=== PATIENT | female | born 1975 | race Caucasian/White ===

== ENCOUNTER 2017-02-08 17:33 | Inpatient (IN) | payer MEDICAID ==
[~2017-02-08] VITALS: Ht 165.1 cm; Wt 59.5 kg
[~2017-02-08 17:33] MED LIST: AMOXICILLIN500 MG PO; KEFLEX750 MG PO
[2017-02-08 19:14] LABS: PLATELET COUNT 311 x10^3mcL (130-400)
[2017-02-08 19:20] LABS: CALCIUM 7.7 mg/dL (8.5-10.1); CARBON DIOXIDE 29.2 mmol/L (21-32); CHLORIDE SERUM 105 mmol/L (98-107); CREATININE SERUM 0.6 mg/dL (0.6-1.0); GFR1 > 60 mL/min; GLUCOSE SERUM 92 mg/dL (74-106); POTASSIUM SERUM 3.5 mmol/L (3.5-5.1); SODIUM SERUM 138 mmol/L (136-145)
[2017-02-08 19:21] LABS: RED CELL DISTRIBUTION WIDTH 22.3 % (11.5-14.5)
[2017-02-08 19:25] LABS: ALKALINE PHOSPHATASE 85 U/L (46-116); ALT/SGPT 32 U/L (14-59); AST/SGOT 30 U/L (15-37); BILIRUBIN TOTAL 0.4 mg/dL (0.20-1.00); LIPASE 104 IU/L (73-393); TOTAL PROTEIN, SERUM 6.4 g/dL (6.4-8.2)
[2017-02-08 19:39] LABS: BAND NEUTROPHIL 0 % (0-10); BASOPHIL 0 % (0-2); MONOCYTE 8 % (0-7); SEGMENTED NEUTROPHILS 62 % (37-75); rbc morphology (normal/abnorm) ABNORMAL (NORMAL)
[2017-02-08] MEDS ORDERED: GLUCOPHAGE XR500 MG (19:42)
[2017-02-08 21:11] VITALS: BP 107/53
[2017-02-08] MEDS ORDERED: METFORMIN HCL500 MG PO (21:23)
[2017-02-08 22:10] LABS: TOTAL IRON BINDING CAPACITY 312 ug/dL (250-450)
[2017-02-08 22:13] LABS: MAGNESIUM 1.6 mg/dL (1.8-2.4); PHOSPHOROUS 3.2 mg/dL (2.5-4.9)
[2017-02-08 22:17] LABS: IRON 13 ug/dL (50-170)
[2017-02-08 22:37] LABS: RED BLOOD CELLS 3.33 M/mm3 (4.10-5.10)
[2017-02-08 22:41] LABS: FREE T4 0.94 ng/dL (0.76-1.46); FREE THYROXINE INDEX 2.8 ug/dL (1.4-4.5); T4(THYROXINE) 7.1 ug/dL (4.7-13.3)
[2017-02-08 22:50] LABS: T3 TOTAL 0.73 ng/mL
[2017-02-09 01:33] LABS: AMPHETAMINE QUAL UR NONE DETECTED (NEG <=1000)
[2017-02-09 03:56] LABS: PLATELET COUNT 299 x10^3mcL (130-400)
[2017-02-09 04:01] LABS: RED CELL DISTRIBUTION WIDTH 30.6 % (11.5-14.5)
[2017-02-09 04:03] LABS: rbc morphology (normal/abnorm) ABNORMAL (NORMAL)
[2017-02-09 06:50] LABS: microscopic required? NO
[2017-02-09 07:10] LABS: PLATELET COUNT 295 x10^3mcL (130-400)
[2017-02-09 07:25] LABS: CALCIUM 7.7 mg/dL (8.5-10.1); CARBON DIOXIDE 28.3 mmol/L (21-32); CHLORIDE SERUM 107 mmol/L (98-107); CREATININE SERUM 0.6 mg/dL (0.6-1.0); GFR1 > 60 mL/min; GLUCOSE SERUM 90 mg/dL (74-106); HDL CHOLESTEROL 40 mg/dL (40-60); MAGNESIUM 2.5 mg/dL (1.8-2.4); PHOSPHOROUS 4.5 mg/dL (2.5-4.9); POTASSIUM SERUM 3.9 mmol/L (3.5-5.1); SODIUM SERUM 140 mmol/L (136-145); TRIGLYCERIDES 45 mg/dL (<150)
[2017-02-09 07:33] LABS: CHOLESTEROL 80 mg/dL (<200)
[2017-02-09 08:22] LABS: urine erythrocyte NEGATIVE (NEGATIVE)
[2017-02-09 08:31] LABS: RED CELL DISTRIBUTION WIDTH 30.7 % (11.5-14.5)
[2017-02-09 09:54] VITALS: BP 94/55
[2017-02-09 11:54] LABS: BAND NEUTROPHIL 2 % (0-10); BASOPHIL 0 % (0-2); MONOCYTE 13 % (0-7); SEGMENTED NEUTROPHILS 58 % (37-75)
[2017-02-09 11:55] LABS: rbc morphology (normal/abnorm) ABNORMAL (NORMAL)
[2017-02-09 12:00] LABS: ovalocyte/elliptocyte 1+; tear drop cell (dacryocyte) 1+
[2017-02-09 13:29] VITALS: BP 90/51
[2017-02-09 17:16] VITALS: BP 101/65
[2017-02-09 21:52] VITALS: BP 104/59
[2017-02-10] VITALS (7 sets, daily range): BP systolic 87–100; BP diastolic 51–67
[2017-02-10 06:10] LABS: PLATELET COUNT 318 x10^3mcL (130-400)
[2017-02-10 06:19] LABS: CALCIUM 7.8 mg/dL (8.5-10.1); CARBON DIOXIDE 26.8 mmol/L (21-32); CHLORIDE SERUM 107 mmol/L (98-107); CREATININE SERUM 0.7 mg/dL (0.6-1.0); GFR1 > 60 mL/min; GLUCOSE SERUM 96 mg/dL (74-106); POTASSIUM SERUM 3.8 mmol/L (3.5-5.1); SODIUM SERUM 140 mmol/L (136-145)
[2017-02-10 06:42] LABS: RED CELL DISTRIBUTION WIDTH 29.1 % (11.5-14.5)
[2017-02-10 06:54] LABS: MONOCYTE 6 % (0-7); SEGMENTED NEUTROPHILS 64 % (37-75)
[2017-02-10 06:56] LABS: BAND NEUTROPHIL 6 % (0-10); ovalocyte/elliptocyte 2+; rbc morphology (normal/abnorm) ABNORMAL (NORMAL)
[2017-02-10 09:17] LABS: ALKALINE PHOSPHATASE 79 U/L (46-116); ALT/SGPT 48 U/L (14-59); AST/SGOT 25 U/L (15-37); BILIRUBIN TOTAL 0.3 mg/dL (0.20-1.00); CALCIUM 7.7 mg/dL (8.5-10.1); CARBON DIOXIDE 27.9 mmol/L (21-32); CHLORIDE SERUM 105 mmol/L (98-107); CREATININE SERUM 0.6 mg/dL (0.6-1.0); GFR1 > 60 mL/min; GLUCOSE SERUM 85 mg/dL (74-106); POTASSIUM SERUM 4.1 mmol/L (3.5-5.1); SODIUM SERUM 140 mmol/L (136-145)
[2017-02-10 10:06] LABS: ALBUMIN 2.7 g/dL (3.4-5.0); TOTAL PROTEIN, SERUM 5.9 g/dL (6.4-8.2)
[2017-02-10] MEDS ORDERED: PHARMASSURE VI500 MG PO (10:09)
[2017-02-10] MEDS ORDERED: FERROUS GLUCON324 MG PO (10:10)
[2017-02-10] MEDS ORDERED: THERA TABS1 TAB PO (10:37)
[2017-02-10 15:58] LABS: PLATELET COUNT 297 x10^3mcL (130-400)
[2017-02-10 15:59] LABS: RED CELL DISTRIBUTION WIDTH 34.4 % (11.5-14.5)
[2017-02-10 16:16] LABS: BAND NEUTROPHIL 5 % (0-10); BASOPHIL 0 % (0-2); MONOCYTE 7 % (0-7); SEGMENTED NEUTROPHILS 63 % (37-75)
[2017-02-10 16:17] LABS: ovalocyte/elliptocyte 2+; rbc morphology (normal/abnorm) ABNORMAL (NORMAL)
== END 2017-02-10 16:02 | disposition home or self-care (01) | DRG 532 ==
LOC: ED 17:33 → DU 19:56
PROVIDERS: Emergency Medicine; ADMIT Family Medicine
PROC: 30233N1 Transfusion of Nonautologous Red Blood Cells into Peripheral Vein, Percutaneous Approach (ICD-10-PCS; principal; 2017-02-08)
DX: N92.0 Excessive and frequent menstruation with regular cycle (principal); E11.59 Type 2 diabetes mellitus with other circulatory complications; D68.69 Other thrombophilia; E44.0 Moderate protein-calorie malnutrition; E83.51 Hypocalcemia; E83.42 Hypomagnesemia; D50.0 Iron deficiency anemia secondary to blood loss (chronic); N83.202 Unspecified ovarian cyst, left side; E86.0 Dehydration; Z68.21 Body mass index [BMI] 21.0-21.9, adult; Z85.3 Personal history of malignant neoplasm of breast; Z79.84 Long term (current) use of oral hypoglycemic drugs
CPT/HCPCS: 82962; 83880; 84439; 90658; J2405; J2916; J3475; J3490; J7030; J7040; P9016; Q0092; Q0163

== ENCOUNTER 2017-12-21 17:45 | Emergency (ER) | payer MEDICAID ==
[~2017-12-21] VITALS: Ht 165.1 cm; Wt 68.0 kg
[~2017-12-21 17:45] MED LIST changes: +FERROUS GLUCON324 MG PO; +GLUCOPHAGE XR500 MG; +METFORMIN HCL500 MG PO; +PHARMASSURE VI500 MG PO; +THERA TABS1 TAB PO
[2017-12-21 17:55] VITALS: Ht 165.1 cm; Wt 68.0 kg
[2017-12-21 18:55] LABS: PLATELET COUNT 249 x10^3mcL (130-400)
[2017-12-21 18:56] LABS: BASOPHIL % 0 % (0-2); RED CELL DISTRIBUTION WIDTH 15.1 % (11.5-14.5)
[2017-12-21 19:02] LABS: CALCIUM 8.2 mg/dL (8.5-10.1); CHLORIDE SERUM 105 mmol/L (98-107); CREATININE SERUM 0.9 mg/dL (0.6-1.0); GFR1 > 60 mL/min; GLUCOSE SERUM 70 mg/dL (74-106); POTASSIUM SERUM 3.6 mmol/L (3.5-5.1); SODIUM SERUM 141 mmol/L (136-145)
[2017-12-21 20:14] LABS: AMPHETAMINE QUAL UR NONE DETECTED (See below)
[2017-12-21 20:57] VITALS: BP 110/50
== END 2017-12-21 20:57 | disposition home or self-care (01) ==
LOC: ED 17:45
PROVIDERS: Emergency Medicine
DX: E11.40 Type 2 diabetes mellitus with diabetic neuropathy, unspecified (principal); K21.9 Gastro-esophageal reflux disease without esophagitis; Z98.890 Other specified postprocedural states; Z90.89 Acquired absence of other organs; Z90.49 Acquired absence of other specified parts of digestive tract
CPT/HCPCS: J1885; J7030; Q0092

== ENCOUNTER 2017-12-22 14:59 | Inpatient (IN) | payer MEDICAID ==
[~2017-12-22] VITALS: Ht 163.8 cm; Wt 69.6 kg
[2017-12-22 16:07] LABS: BASOPHIL % 0.2 % (0-2); PLATELET COUNT 246 x10^3mcL (130-400)
[2017-12-22 16:09] LABS: RED CELL DISTRIBUTION WIDTH 15.4 % (11.5-14.5)
[2017-12-22 16:15] LABS: CALCIUM 8.2 mg/dL (8.5-10.1); CARBON DIOXIDE 30.3 mmol/L (21-32); CHLORIDE SERUM 105 mmol/L (98-107); CREATININE SERUM 0.7 mg/dL (0.6-1.0); GFR1 > 60 mL/min; GLUCOSE SERUM 116 mg/dL (74-106); POTASSIUM SERUM 3.4 mmol/L (3.5-5.1); SODIUM SERUM 138 mmol/L (136-145)
[2017-12-22 17:20] LABS: CHOLESTEROL/HDL RATIO 2.3; MAGNESIUM 1.9 mg/dL (1.8-2.4); PHOSPHOROUS 3.6 mg/dL (2.5-4.9)
[2017-12-22 17:29] LABS: FREE T4 1.01 ng/dL (0.76-1.46); FREE THYROXINE INDEX 2.3 ug/dL (1.4-4.5); T4(THYROXINE) 6.8 ug/dL (4.7-13.3)
[2017-12-22 17:30] LABS: T3 TOTAL 1.07 ng/mL
[2017-12-22 17:41] VITALS: BP 97/67
[2017-12-22 17:46] VITALS: Ht 163.8 cm; Wt 69.6 kg
[2017-12-22 19:29] LABS: UA SPECIFIC GRAVITY 1.025 (1.005-1.035); microscopic required? YES; urine erythrocyte 3+ (NEGATIVE)
[2017-12-22 19:39] LABS: AMPHETAMINE QUAL UR NONE DETECTED (See below)
[2017-12-22 20:17] VITALS: BP 108/61
[2017-12-23 05:07] VITALS: BP 95/53
[2017-12-23 06:58] LABS: CALCIUM 7.7 mg/dL (8.5-10.1); CARBON DIOXIDE 27.1 mmol/L (21-32); CHLORIDE SERUM 108 mmol/L (98-107); CREATININE SERUM 0.6 mg/dL (0.6-1.0); GFR1 > 60 mL/min; GLUCOSE SERUM 87 mg/dL (74-106); MAGNESIUM 1.8 mg/dL (1.8-2.4); PHOSPHOROUS 3.9 mg/dL (2.5-4.9); POTASSIUM SERUM 4.5 mmol/L (3.5-5.1); SODIUM SERUM 141 mmol/L (136-145)
[2017-12-23 07:32] LABS: BASOPHIL % 0.1 % (0-2); PLATELET COUNT 199 x10^3mcL (130-400)
[2017-12-23 07:33] LABS: RED CELL DISTRIBUTION WIDTH 15.3 % (11.5-14.5)
[2017-12-23 09:40] VITALS: BP 91/53
[2017-12-23 13:35] VITALS: BP 107/60
[2017-12-23 16:53] VITALS: BP 103/57
[2017-12-23 21:04] VITALS: BP 96/50
[2017-12-24 05:32] VITALS: BP 99/59
[2017-12-24 05:53] LABS: CALCIUM 7.8 mg/dL (8.5-10.1); CARBON DIOXIDE 26.2 mmol/L (21-32); CHLORIDE SERUM 108 mmol/L (98-107); CREATININE SERUM 0.6 mg/dL (0.6-1.0); GFR1 > 60 mL/min; GLUCOSE SERUM 87 mg/dL (74-106); PHOSPHOROUS 3.9 mg/dL (2.5-4.9); POTASSIUM SERUM 3.8 mmol/L (3.5-5.1); SODIUM SERUM 142 mmol/L (136-145)
[2017-12-24 06:53] LABS: BASOPHIL % 0.8 % (0-2); PLATELET COUNT 214 x10^3mcL (130-400)
[2017-12-24 06:54] LABS: RED CELL DISTRIBUTION WIDTH 15.3 % (11.5-14.5)
[2017-12-24 09:15] VITALS: BP 105/64
[2017-12-24 13:18] VITALS: BP 96/52
[2017-12-24 17:31] VITALS: BP 100/56
[2017-12-24 22:31] VITALS: BP 101/53
[2017-12-25 06:41] VITALS: BP 102/60
[2017-12-25 07:54] LABS: BASOPHIL % 0.1 % (0-2); CALCIUM 7.9 mg/dL (8.5-10.1); CARBON DIOXIDE 26.9 mmol/L (21-32); CHLORIDE SERUM 108 mmol/L (98-107); CREATININE SERUM 0.7 mg/dL (0.6-1.0); GFR1 > 60 mL/min; GLUCOSE SERUM 87 mg/dL (74-106); MAGNESIUM 1.9 mg/dL (1.8-2.4); PLATELET COUNT 212 x10^3mcL (130-400); POTASSIUM SERUM 4.1 mmol/L (3.5-5.1); SODIUM SERUM 138 mmol/L (136-145)
[2017-12-25] MEDS ORDERED: PROV5 PO (08:03)
[2017-12-25 08:11] VITALS: BP 102/60
== END 2017-12-25 08:25 | disposition home or self-care (01) | DRG 532 ==
LOC: ED 14:59 → DU 16:47
PROVIDERS: Emergency Medicine; Family Medicine
DX: N92.1 Excessive and frequent menstruation with irregular cycle (principal); D62 Acute posthemorrhagic anemia; E11.9 Type 2 diabetes mellitus without complications; E87.6 Hypokalemia; M79.662 Pain in left lower leg; Z68.26 Body mass index [BMI] 26.0-26.9, adult; F15.21 Other stimulant dependence, in remission
CPT/HCPCS: 82962; 83880; 84439; 90658; J1410; J1885; J2405; J3490; J7030; Q0092

== ENCOUNTER 2018-04-02 20:44 | Emergency (ER) | payer SELFPAY ==
[~2018-04-02] VITALS: Ht 162.6 cm; Wt 75.7 kg
[~2018-04-02 20:44] MED LIST changes: +PROV5 PO
[2018-04-02 21:30] VITALS: Ht 162.6 cm; Wt 75.7 kg
[2018-04-02 22:17] LABS: UA SPECIFIC GRAVITY >=1.030 (1.005-1.035); microscopic required? YES; urine erythrocyte 3+ (NEGATIVE)
[2018-04-02 22:51] LABS: BASOPHIL % 0.1 % (0-2); PLATELET COUNT 251 x10^3mcL (130-400)
[2018-04-02 23:07] LABS: CALCIUM 8.4 mg/dL (8.5-10.1); CARBON DIOXIDE 28.8 mmol/L (21-32); CHLORIDE SERUM 105 mmol/L (98-107); CREATININE SERUM 0.8 mg/dL (0.6-1.0); GFR1 > 60 mL/min; GLUCOSE SERUM 85 mg/dL (74-106); POTASSIUM SERUM 3.7 mmol/L (3.5-5.1); SODIUM SERUM 141 mmol/L (136-145)
[2018-04-02 23:11] LABS: ALBUMIN 3.5 g/dL (3.4-5.0); ALKALINE PHOSPHATASE 85 U/L (46-116); ALT/SGPT 20 U/L (14-59); AMYLASE 57 U/L (25-115); AST/SGOT 13 U/L (15-37); BILIRUBIN TOTAL 0.1 mg/dL (0.20-1.00); LIPASE 198 IU/L (73-393); TOTAL PROTEIN, SERUM 7.2 g/dL (6.4-8.2)
[2018-04-03 01:02] VITALS: BP 106/62
== END 2018-04-03 01:02 | disposition home or self-care (01) ==
LOC: ED 20:44
PROVIDERS: Emergency Medicine
DX: N93.8 Other specified abnormal uterine and vaginal bleeding (principal); N92.1 Excessive and frequent menstruation with irregular cycle; E11.9 Type 2 diabetes mellitus without complications
CPT/HCPCS: J1885; J7030

== ENCOUNTER 2018-05-27 16:46 | Emergency (ER) | payer SELFPAY ==
[~2018-05-27] VITALS: Ht 165.1 cm; Wt 71.2 kg
[2018-05-27 16:53] VITALS: Ht 165.1 cm; Wt 71.2 kg
[2018-05-27 18:43] VITALS: BP 102/74
== END 2018-05-27 18:43 | disposition home or self-care (01) ==
LOC: ED 16:46
DX: H10.32 Unspecified acute conjunctivitis, left eye (principal); E11.9 Type 2 diabetes mellitus without complications; K21.9 Gastro-esophageal reflux disease without esophagitis; Z98.890 Other specified postprocedural states

== ENCOUNTER 2019-04-07 03:55 | Emergency (ER) | payer MEDICAID ==
[~2019-04-07] VITALS: Ht 170.2 cm; Wt 73.0 kg
[2019-04-07 03:59] VITALS: Ht 170.2 cm; Wt 73.0 kg
[2019-04-07 04:51] VITALS: BP 112/66
== END 2019-04-07 04:51 | disposition home or self-care (01) ==
LOC: ED 03:55
DX: J11.1 Influenza due to unidentified influenza virus with other respiratory manifestations (principal); K21.9 Gastro-esophageal reflux disease without esophagitis; E11.9 Type 2 diabetes mellitus without complications; R11.2 Nausea with vomiting, unspecified; Z86.2 Personal history of diseases of the blood and blood-forming organs and certain disorders involving the immune mechanism
CPT/HCPCS: Q0162

== ENCOUNTER 2019-10-08 12:05 | Emergency (ER) | payer MEDICAID ==
[~2019-10-08] VITALS: Ht 165.1 cm; Wt 74.8 kg
[2019-10-08 12:07] VITALS: Ht 165.1 cm; Wt 74.8 kg
[2019-10-08 13:28] VITALS: BP 98/69
== END 2019-10-08 13:28 | disposition home or self-care (01) ==
LOC: ED 12:05
DX: U07.1 COVID-19 (principal); E11.9 Type 2 diabetes mellitus without complications; K21.9 Gastro-esophageal reflux disease without esophagitis; Z98.890 Other specified postprocedural states; Z86.2 Personal history of diseases of the blood and blood-forming organs and certain disorders involving the immune mechanism
CPT/HCPCS: U0003-CS

== ENCOUNTER 2019-10-12 19:47 | Emergency (ER) | payer MEDICAID, SELFPAY ==
[~2019-10-12] VITALS: Ht 165.1 cm; Wt 72.6 kg
[2019-10-12 19:52] VITALS: Ht 165.1 cm; Wt 72.6 kg
[2019-10-12 23:18] LABS: BASOPHIL % 0.9 % (0-2); PLATELET COUNT 278 x10^3mcL (130-400); RED CELL DISTRIBUTION WIDTH 14.6 % (11.5-14.5)
[2019-10-13 00:18] LABS: CARBON DIOXIDE 25 mmol/L (21-32); CHLORIDE SERUM 101 mmol/L (98-107); CREATININE SERUM 0.8 mg/dL (0.6-1.0); GFR1 > 60 mL/min; GLUCOSE SERUM 95 mg/dL (74-106); POTASSIUM SERUM 3.7 mmol/L (3.5-5.1); SODIUM SERUM 137 mmol/L (136-145)
[2019-10-13 00:23] LABS: ALBUMIN 4.1 g/dL (3.4-5.0); ALKALINE PHOSPHATASE 94 U/L (46-116); ALT/SGPT 23 U/L (14-59); AST/SGOT 14 U/L (15-37); BILIRUBIN TOTAL 0.4 mg/dL (0.20-1.00); CALCIUM 8.8 mg/dL (8.5-10.1); TOTAL PROTEIN, SERUM 8.1 g/dL (6.4-8.2)
[2019-10-13 00:24] LABS: LACTIC DEHYDROGENASE (LDH) 182 U/L (100-190)
[2019-10-13 01:56] VITALS: BP 97/51
== END 2019-10-13 01:56 | disposition home or self-care (01) ==
LOC: ED 19:47
PROVIDERS: Emergency Medicine
DX: U07.1 COVID-19 (principal)
CPT/HCPCS: 36600; 83880; G0480; Q0092